=== PATIENT | male | born 1990 | race Caucasian/White ===

== ENCOUNTER 2019-07-30 12:10 | Emergency (ER) | payer OTHER, SELFPAY ==
[2019-07-30] MEDS ORDERED: LIDOCAINE 1% MPF 5 ML VIAL ONE (13:08)
--- NOTE | 2019-07-30 13:40 | ER ---
Nurse's Notes [facility] Name: Geo Sadler Age: 29 yrs Sex: Male : 1990 Arrival Date: 07/30/2019 Time: 12:12 Bed 16 Private MD: Diagnosis: Left arm laceration Presentation: 07/30 12:21 Presenting complaint: Patient states: left wrist laceration with a machete on accident sv today. Transition of care: patient was not received from another setting of care. Complicating Factors: There are no complicating factors for this patient. Onset of symptoms was July 30, 2019. Risk Assessment: Do you want to hurt yourself or someone else? Patient reports no desire to harm self or others. Care prior to arrival: None. 12:21 Method Of Arrival: Ambulatory sv 12:21 Acuity: EBER 3 sv 12:30 Initial Sepsis Screen: Does the patient meet any 2 criteria? No. Patient's initial bp sepsis screen is negative. Does the patient have a suspected source of infection? No. Patient's initial sepsis screen is negative. Triage Assessment: 12:21 General: Appears in no apparent distress. uncomfortable, Behavior is cooperative, bp appropriate for age, anxious. Pain: Complains of pain in left wrist. EENT: No deficits noted. Neuro: No deficits noted. Cardiovascular: No deficits noted. Respiratory: No deficits noted. GI: No signs and/or symptoms were reported involving the gastrointestinal system. : No signs and/or symptoms were reported regarding the genitourinary system. Derm: No deficits noted. Musculoskeletal: No deficits noted. Injury Description: Laceration sustained to left wrist. 12:21 General: Appears in no apparent distress. uncomfortable, Behavior is cooperative, sv appropriate for age, quiet. Neuro: Level of Consciousness is awake, alert, obeys commands, Gait is steady. Respiratory: Respiratory effort is even, unlabored, Respiratory pattern is regular, symmetrical. Historical: - Allergies: 12:22 No Known Allergies; sv - PMHx: 12:22 None; sv - PSHx: 12:22 None; sv - Immunization history:: Adult Immunizations up to date. - Social history:: Smoking status: Patient uses tobacco products, smokes one pack cigarettes per day. - Ebola Screening: : No symptoms or risks identified at this time. Screenin:21 Abuse screen: Denies threats or abuse. Denies injuries from another. Nutritional bp screening: No deficits noted. Tuberculosis screening: No symptoms or risk factors identified. Fall Risk None identified. Assessment: 12:21 General: SEE TRIAGE NOTE. Injury Description: Laceration sustained to left wrist is 2.6 bp to 7.5 cm long, not bleeding, was sustained 1-2 hours ago. is bleeding moderately. Vital Signs: 12:22 BP 105 / 74; Pulse 63; Resp 16; Temp 98.3; Pulse Ox 100% ; Weight 81.65 kg; Height 6 sv ft. 3 in. (190.50 cm); Pain 0/10; 13:57 BP 111 / 71; Pulse 69; Resp 17; Temp 98; Pulse Ox 100% ; bp 12:22 Body Mass Index 22.50 (81.65 kg, 190.50 cm) sv ED Course: 12:12 Patient arrived in ED. as 12:21 Triage completed. sv 12:21 Patient has correct armband on for positive identification. Bed in low position. Call bp light in reach. Side rails up X2. 12:23 Arm band placed on. sv 12:27 Benny Culver, RN is Primary Nurse. bp 13:03 Al Acevedo MD is Attending Physician. ps1 13:30 Assist provider with laceration repair on left wrist that was between 2.6 to 7.5 cm bp using sutures. Set up tray. Performed by Al Acevedo MD Dressed with Kerlix, Patient tolerated well. 13:30 Patient did not have IV access during this emergency room visit. bp Administered Medications: No medications were administered Outcome: 13:36 Discharge ordered by MD. ps1 13:57 Discharged to home ambulatory, with family. bp 13:57 Condition: stable 13:57 Discharge instructions given to patient, Instructed on discharge instructions, follow up and referral plans. wound care, Demonstrated understanding of instructions, follow-up care, wound care. 13:58 Patient left the ED. bp Signatures: Lulu Hughes RN RN sv Anu Douglas as Benny Culver, RN RN bp Al Acevedo MD MD ps1 Corrections: (The following items were deleted from the chart) 12:24 12:22 Pulse 63bpm; Resp 16bpm; Pulse Ox 100%; Temp 98.3F; 81.65 kg; Height 6 ft. 3 in.; sv BMI: 22.5; Pain 0/10; sv
--- NOTE | 2019-07-30 13:40 | EDPHYS ---
Physician Documentation [facility] Name: Geo Sadler Age: 29 yrs Sex: Male : 1990 Arrival Date: 07/30/2019 Time: 12:12 Bed 16 Private MD: ED Physician Al Acevedo HPI: 07/30 13:29 This 29 yrs old Male presents to ER via Ambulatory with complaints of ps1 Laceration - Wrist. 13:29 patient is right hand dominant. Patient states that he was using a machete and clearing ps1 brush. Blade accidentally cut dorsal aspect of left forearm. Laceration is appx 3cm. Bleeding controlled. 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 Tetanus UTD per patient. Pain mild. Has FROM. NV intact.. Historical: - Allergies: 12:22 No Known Allergies; sv - PMHx: 12:22 None; sv - PSHx: 12:22 None; sv - Immunization history:: Adult Immunizations up to date. - Social history:: Smoking status: Patient uses tobacco products, smokes one pack cigarettes per day. - Ebola Screening: : No symptoms or risks identified at this time. ROS: 13:29 Constitutional: Negative for fever, chills, and weight loss, Eyes: Negative for injury, ps1 pain, redness, and discharge, ENT: Negative for injury, pain, and discharge, Cardiovascular: Negative for chest pain, palpitations, and edema, Respiratory: Negative for shortness of breath, cough, wheezing, and pleuritic chest pain, Abdomen/GI: Negative for abdominal pain, nausea, vomiting, diarrhea, and constipation, MS/Extremity: Negative for injury and deformity, Neuro: Negative for headache, weakness, numbness, tingling, and seizure. 13:29 Skin: Positive for laceration(s), of the left wrist. Exam: 13:29 Constitutional: This is a well developed, well nourished patient who is awake, alert, ps1 and in no acute distress. Head/Face: Normocephalic, atraumatic. Eyes: Pupils equal round and reactive to light, extra-ocular motions intact. Lids and lashes normal. Conjunctiva and sclera are non-icteric and not injected. Chest/axilla: Normal chest wall appearance and motion. Nontender with no deformity. No lesions are appreciated. Cardiovascular: Regular rate and rhythm. No gallops, murmurs, or rubs. Normal PMI, no JVD. No pulse deficits. Respiratory: Lungs have equal breath sounds bilaterally, clear to auscultation and percussion. No rales, rhonchi or wheezes noted. No increased work of breathing, no retractions or nasal flaring. Abdomen/GI: Soft, non-tender, with normal bowel sounds. No distension or tympany. No guarding or rebound. No evidence of tenderness throughout. MS/ Extremity: Pulses equal, no cyanosis. Neurovascular intact. Full, normal range of motion. Neuro: Awake and alert, GCS 15, oriented to person, place, time, and situation. Cranial nerves II-XII grossly intact. Sensory grossly intact. 13:29 Musculoskeletal/extremity: distal patient has FROM. Able to OK sign. Thumbs up. Flex, extend wrist. Abduct and adduct fingers. oppose thumb. venous bleeding after cleaning. . 13:29 Skin: injury, laceration(s), the wound is approximately 3 cm(s), with a depth of 1 cm(s), of the left wrist, that can be described as clean, no foreign body, linear. Vital Signs: 12:22 BP 105 / 74; Pulse 63; Resp 16; Temp 98.3; Pulse Ox 100% ; Weight 81.65 kg; Height 6 sv ft. 3 in. (190.50 cm); Pain 0/10; 13:57 BP 111 / 71; Pulse 69; Resp 17; Temp 98; Pulse Ox 100% ; bp 12:22 Body Mass Index 22.50 (81.65 kg, 190.50 cm) sv Laceration: 13:29 Wound Repair of 3cm ( 1.2in ) subcutaneous laceration to left wrist. Linear shaped.. ps1 Minimal bleeding noted.. entrance in to muscle belly. Distal neuro/vascular/tendon intact. Anesthesia: Local anesthetic administered with 5 mls of 1% lidocaine w/ Epi. Wound prep: Moderate cleansing with hibiclenz by me, Wound irrigation with saline by me, Wound explored moderately extensively, Copious irrigation. Skin closed with 4 5-0 Prolene using simple sutures and sterile technique. Dressed with Bacitracin, Kerlix. Patient tolerated well. MDM: 13:29 Data reviewed: vital signs, nurses notes, and as a result, I will discharge patient. ps1 Counseling: I had a detailed discussion with the patient and/or guardian regarding: the historical points, exam findings, and any diagnostic results supporting the discharge/admit diagnosis, to return to the emergency department if symptoms worsen or persist or if there are any questions or concerns that arise at home. ED course: return in 7 days for suture removal. Precautions for infection including fever, chills, sunburn type rash, purulent discharge. Return to ED immediately. . 13:36 Patient medically screened. ps1 Administered Medications: No medications were administered Disposition: 07/30/19 13:36 Discharged to Home. Impression: Left arm laceration. - Condition is Stable. - Discharge Instructions: Laceration Care, Adult. - Medication Reconciliation Form, Thank You Letter, Antibiotic Education, Prescription Opioid Use form. - Follow up: Emergency Department; When: 7 - 10 days; Reason: Wound Recheck, Recheck today's complaints, Staple/Suture removal. - Problem is new. - Symptoms have improved. Signatures: Lulu Hughes RN RN Benny Culver RN RN bp Al Acevedo MD MD ps1 Corrections: (The following items were deleted from the chart) 13:58 13:36 07/30/2019 13:36 Discharged to Home. Impression: Left arm laceration. Condition bp is Stable. Forms are Medication Reconciliation Form, Thank You Letter, Antibiotic Education, Prescription Opioid Use. Follow up: Emergency Department; When: 7 - 10 days; Reason: Wound Recheck, Recheck today's complaints, Staple/Suture removal. Problem is new. Symptoms have improved. ps1
== END 2019-07-30 13:58 | disposition home or self-care (01) ==
LOC: ER 12:10
PROC: 0JQH0ZZ Repair Left Lower Arm Subcutaneous Tissue and Fascia, Open Approach (ICD-10-PCS; principal; 2019-07-30)
DX: S61.512A Laceration without foreign body of left wrist, initial encounter (principal); W26.0XXA Contact with knife, initial encounter; Y93.89 Activity, other specified; Y92.89 Other specified places as the place of occurrence of the external cause; F17.210 Nicotine dependence, cigarettes, uncomplicated
CPT/HCPCS: 99283